=== PATIENT | female | born 1980 | race Caucasian/White ===

== ENCOUNTER → 2018-03-30 17:15 | Outpatient (CLI) | payer BC, SELFPAY ==
--- NOTE | 2018-03-30 17:16 | MM_ITS ---
MM Dig screening mamm BI w/CAD CAD Screening COMPARISON: Baseline mammogram 10/25/2016 and follow-up additional views right breast 11/30/2016 INDICATION: Is a history of breast cancer patient's sister diagnosed before menopause and patient's 3 paternal aunts diagnosed after menopause. TECHNIQUE: Standard CC and MLO images were obtained. R2 CAD reviewed. FINDINGS: Moderate diffuse scattered fibroglandular densities are seen throughout both breasts. The possible asymmetric density right breast seen on the additional views November 2016 is much less prominent on today's exam and may have been a cyst which there is no suspicious lesion and there are no suspicious microcalcifications. Decompressed. IMPRESSION: Moderate diffuse breast density with no suspicious lesion seen BI-RADS Category: 1 Negative RECOMMENDED FOLLOW-UP: 1YR - 1 YEAR FOLLOW-UP (A letter has been sent to the patient regarding results of the study.)
== END ==
PROVIDERS: PCP Internal Medicine Adolescent Medicine; Visit Provider Nurse Practitioner Obstetrics & Gynecology
DX: Z12.31 Encounter for screening mammogram for malignant neoplasm of breast (principal); Z80.3 Family history of malignant neoplasm of breast
CPT/HCPCS: 77067

== ENCOUNTER → 2022-06-18 15:18 | Outpatient (CLI) | payer OTHER, SELFPAY ==
--- NOTE | 2022-06-18 15:18 | US_ITS ---
FINAL REPORT CLINICAL HISTORY: ovarian cyst-- pelvic pain FINDINGS: Transvaginal sonographic images of the pelvis were obtained. The uterus is somewhat enlarged and measures 9.2 x 5.3 x 4.9 cm. The endometrium measures 14 mm, which is at the upper limits of normal. No uterine mass is identified. The right ovary measures 4.0 cm in length and left ovary measures 3.6 cm in length. Normal blood flow seen to the ovaries. There is a small follicle in the left ovary and a 3 cm cyst in the right ovary. There is no evidence of free fluid. IMPRESSION: Slightly enlarged uterus. Endometrium is at the upper limits of normal. 3 cm right ovarian cyst. Reviewed, Interpreted and Dictated by Shayne Tolentino III, MD Transcribed by Gail Ramirez Authenticated and [facility]
== END ==
PROVIDERS: PCP Internal Medicine Adolescent Medicine; Visit Provider Obstetrics & Gynecology
DX: N83.209 Unspecified ovarian cyst, unspecified side (principal)
CPT/HCPCS: 76830

== ENCOUNTER 2022-07-15 11:16 | Emergency (ER) | payer OTHER, SELFPAY ==
[2022-07-15 11:25] VITALS: BP 121/86; PULSE 85; RESP 20; TEMP 37.1; O2SAT 98; BMI 29.0
[2022-07-15 11:29] VITALS: BMI 29.0
--- NOTE | 2022-07-15 11:36 | EXP.UTC ---
Discharge Plan Disposition Patient Disposition: Home, Self-Care Prescriptions Prescriptions: No Action albuterol sulfate 90 mcg/actuation HFA aerosol inhaler INHALATION PRN25 Days Qty: 18 Label Comments: Advair Diskus 100-50 mcg/dose blister with device 1 ea INHALATION BID PRN valacyclovir 1 gram tablet 1,000 mg PO PRN phentermine [Adipex-P] 37.5 mg tablet 37.5 mg PO DAILY PRN Rx Instructions: must administer 30 minutes before or 1-2 hours after breakfast Referrals Follow up/Referrals: Luis Renteria MD [Primary Care Provider] - See instructions Clinical Impressions Clinical Impression: Needle stick injury of finger Instructions Patient Instructions: How to Handle Body Fluid Exposure -- Healthcare Worker Discharge ED Provider: Blake Blanchard [facility] General Stated complaint: Stuck LT thumb w/moderna needle@work 07/15 10am Time Seen by Provider: 07/15/22 11:36 History of Present Illness Provider Complaint: She gives covid vaccines at hometown pharmacy when she got stuck by a needle after giving a shot. Her tetanus immunization is not up to date. Related Data Home Medications Medication Instructions Recorded Confirmed albuterol sulfate 90 mcg/actuation inhalation PRN 25 days ##18 06/15/22 06/15/22 aerosol inhaler fluticasone 100 mcg-salmeterol 50 1 ea inhalation BID PRN 06/15/22 06/15/22 mcg/dose blistr powdr for inhalation (Advair Diskus) phentermine 37.5 mg tablet 37.5 mg PO DAILY PRN 06/15/22 (Adipex-P) valacyclovir 1 gram tablet 1,000 mg PO PRN 06/15/22 06/15/22 Allergies Allergy/AdvReac Type Severity Reaction Status Date / Time No Known Allergies Allergy Verified 06/15/22 14:28 [facility] Medical History Asthma Migraine Surgical History History of tubal ligation Family History Other Breast cancer Cancer Ovarian cancer Social History Smoking Status: Never smoker alcohol intake: never current occupational status: employed Travel in the last 8 weeks: None housing: house ROS Obtained: Yes All systems reviewed & no additional complaints except as documented Constitutional Constitutional: Denies chills and Denies fever(s) Eyes Eyes: Denies eye discharge ENT Ears, Nose, Mouth, and Throat: Denies dizziness, Denies otalgia and Denies sore throat Cardiovascular Cardiovascular: Denies chest pain Respiratory Respiratory: Denies shortness of breath, Denies chest congestion, Denies cough, Denies stridor and Denies wheezing Gastrointestinal Gastrointestingal: Denies nausea or vomiting Musculoskeletal Musculoskeletal: Reports system reviewed and no additional complaints, except as documented and Denies arthralgias Integumentary/Breasts Skin/Breast: Denies rash Neurologic Neurologic: Denies dizziness and Denies paresthesias Allergic/Immunologic Allergic/Immunologic: Denies wheezing Physical Exam General General appearance: alert and in no apparent distress Head Head exam: atraumatic, normocephalic and normal inspection Eye Eye exam: Present normal appearance, PERRL and EOMI ENT ENT exam: Present normal exam, normal oropharynx, mucous membranes moist, TM's normal bilaterally and normal external ear exam Neck Neck exam: Present normal inspection, full ROM and trachea midline; Absent meningismus or lymphadenopathy Chest Chest inspection: Present normal inspection and symmetric chest wall rise; Absent tenderness Respiratory Respiratory exam: Present normal lung sounds bilaterally; Absent respiratory distress Cardiovascular Cardiovascular exam: Present regular rate and normal rhythm; Absent JVD Abdominal Exam Abdominal exam: Present soft and normal bowel sounds; Absent distention, tenderness or guarding Extremities Exam E
[2022-07-15 12:05] LABS: Basophils % 0.5 % (0.1-2.0); Eosinophils # 0.1 K/mm3 (0.0-0.4); Eosinophils % 1.7 % (0.1-12.0); Hematocrit 40.5 % (37.0-47.0); Hemoglobin 12.8 g/dL (12.2-16.2); Lymphocytes # 1.7 K/mm3 (0.7-4.5); Lymphocytes % 27.7 % (10-50); Mean Corpuscular HGB Conc 31.6 g/dL (31.8-35.4); Mean Corpuscular Hemoglobin 26.8 pg (27.0-31.2); Mean Corpuscular Volume 84.8 fl (81-99); Mean Platelet Volume 8.3 fl (7.4-10.4); Monocytes # 0.4 K/mm3 (0.1-1.0); Monocytes % 5.7 % (1.7-9.3); Neutrophils % 64.5 % (37.0-80.0); Platelet Count 372 K/mm3 (142-424); Red Blood Count 4.78 M/mm3 (4.20-5.40); Red Cell Distribution Width 15.3 % (11.5-17.5); White Blood Count 6.3 K/mm3 (4.8-10.8)
[2022-07-15 12:06] LABS: Chloride 101 mmol/L (98-107); Potassium 3.8 mmoL/L (3.5-5.1); Sodium 139 mmol/L (136-145)
[2022-07-15 12:08] VITALS: BP 121/86; PULSE 85; RESP 20; TEMP 37.1; O2SAT 98
[2022-07-15 12:08] LABS: Alanine Aminotransferase 21 U/L (12-78); Aspartate Amino Transferase 31 U/L (14-36); Blood Urea Nitrogen 10 mg/dl (7-17); Creatinine Clearance Estimated 134 mL/min (50-200); Estimated Glomerular Filt Rate 91 ml/min (>60); GFR (African American) 111 ML/MIN (>60)
[2022-07-15 12:09] LABS: Albumin Level 4.5 g/dl (3.5-5.0); Albumin/Globulin Ratio 1.6 (1.1-1.8); Alkaline Phosphatase 58 U/L (38-126); Anion Gap 12.8 mEq/L (5-15); Bilirubin,Total 0.1 mg/dl (0.2-1.3); Calcium 8.5 mg/dl (8.4-10.2); Carbon Dioxide 29 mmol/L (22.0-30.0); Globulin 2.9 g/dL (1.3-3.2); Glucose 88 mg/dl (74-100); Total Protein,Serum 7.4 g/dl (6.3-8.2)
[2022-07-15 12:12] LABS: Activated Partial Thrombo Time 27.3 seconds (22.8-30.6); INR 0.95 (0.9-1.1); Prothrombin Time 10.3 seconds (10.1-12.5)
[2022-07-16 06:11] LABS: Hepatitis B Surface Antigen Negative (Negative)
[2022-07-16 07:14] LABS: HIV Screen 4th Generation wRfx Non Reactive (Non Reactive)
== END 2022-07-15 12:12 | disposition home or self-care (01) ==
PROVIDERS: Emergency Provider Nurse Practitioner Family; PCP Internal Medicine Adolescent Medicine
DX: S61.032A Puncture wound without foreign body of left thumb without damage to nail, initial encounter (principal); W46.0XXA Contact with hypodermic needle, initial encounter; Y92.59 Other trade areas as the place of occurrence of the external cause; Z23 Encounter for immunization
CPT/HCPCS: 80053; 85025; 85610; 85730; 86703; 86706; 87340; 90471; 90715; 99212; G0432; G0463